=== PATIENT | female | born 1975 | race Asian ===

== ENCOUNTER 2018-05-06 02:47 | Emergency (ER) | payer OTHER ==
[~2018-05-06] VITALS: Ht 162.6 cm; Wt 56.4 kg
[2018-05-06 02:50] VITALS: BP 129/66
[2018-05-06] MEDS ORDERED: PHENAZOPYRIDINE 200 MG TABLET ONE (03:36)
[2018-05-06] MEDS ORDERED: PHENAZOPYRIDINE 200 MG TABLET PO ONE (04:00)
[2018-05-06 04:01] LABS: CULTURE INDICATED? YES; MICROSCOPIC INDICATED
== END 2018-05-06 04:35 | disposition home or self-care (01) ==
LOC: ED 04:30
DX: N30.01 Acute cystitis with hematuria (principal); E11.9 Type 2 diabetes mellitus without complications
CPT/HCPCS: 81001; 81025; 87077; 87086; 87186; 99284

== ENCOUNTER 2020-05-03 12:43 | Emergency (ER) | payer OTHER ==
[~2020-05-03] VITALS: Ht 162.6 cm; Wt 52.8 kg
[2020-05-03] MEDS ORDERED: DIPHENHYDRAMINE 50 MG/ML, 1ML ONE (13:20)
[2020-05-03] MEDS ORDERED: METOCLOPRAMIDE 5 MG/ML, 2ML ONE (13:20)
[2020-05-03] MEDS ORDERED: KETOROLAC 30 MG/1 ML ONE (13:20)
[2020-05-03] MEDS ORDERED: METOCLOPRAMIDE 5 MG/ML, 2ML IVPush ONE (13:30)
[2020-05-03] MEDS ORDERED: SODIUM CHLORIDE 0.9% 1,000ML IVBOLUS ONE (13:30)
[2020-05-03] MEDS ORDERED: DIPHENHYDRAMINE 50 MG/ML, 1ML IVPush ONE (13:30)
[2020-05-03] MEDS ORDERED: KETOROLAC 30 MG/1 ML IVPush ONE (13:30)
--- NOTE | 2020-05-03 13:34 | NUR ---
PT CAME IN CO OF "WORST HEADACE JERRY EVER HAD". STATES SHE HIT HER HEAD ON A SHELF A FEW DAYS AGO AND HEADACHE HASNT GONE AWAY. PT IS [id number]. ACCOMPANIED BY FAMILY MEMBER. DENIES TAKING BLOOD THINNERS. IS RESTING [facility]. MEDICATED PER MAR
[2020-05-03 13:45] LABS: BASOPHILS # (AUTO) 0.04 x10^3/uL (0-0.1); BASOPHILS % (AUTO) 1 % (0-1); EOSINOPHILS # (AUTO) 0.07 x10^3/uL (0-0.4); EOSINOPHILS % (AUTO) 1 % (1-7); LYMPHOCYTES % (AUTO) 37 % (22-44); MD NO; MEAN CORPUSCULAR HEMOGLOBIN 31.1 pg (27.0-34.8); MEAN CORPUSCULAR HGB CONC 34.1 g/dL (32.4-35.8); MEAN CORPUSCULAR VOLUME 91.3 fL (80-100); MONOCYTES # (AUTO) 0.31 x10^3/uL (0.2-0.8); MONOCYTES % (AUTO) 6 % (2-9); NEUTROPHILS # (AUTO) 2.83 x10^3/uL (1.8-6.8); NEUTROPHILS % (AUTO) 55 % (42-75); PLATELET COUNT 287 x10^3/uL (130-400); RED CELL DISTRIBUTION WIDTH 12.4 % (9.6-15.2)
[2020-05-03 13:55] LABS: ANION GAP 8 mmol/L (5-15); CALCIUM 8.9 mg/dL (8.5-10.1); CHLORIDE 105 mmol/L (98-107)
[2020-05-03 13:56] LABS: ALANINE AMINOTRANSFERASE 22 U/L (12-78); ALBUMIN 3.9 g/dL (3.4-5.0)
[2020-05-03 13:58] LABS: ALKALINE PHOSPHATASE 72 U/L (45-117); BILIRUBIN,TOTAL 0.8 mg/dL (0.2-1.0); TOTAL PROTEIN 8.3 g/dL (6.4-8.2)
[2020-05-03 14:10] VITALS: BP 116/68
--- NOTE | 2020-05-03 14:11 | NUR ---
PT AMBULATED TO BATHTOOM TO PROVIDE URINE SAMPLE
[2020-05-03 15:00] LABS: HCG UR SG 1.011 (1.003-1.030); MICROSCOPIC NOT IND
== END 2020-05-03 15:10 | disposition home or self-care (01) ==
LOC: ED 13:40
DX: S09.90XA Unspecified injury of head, initial encounter (principal); G44.209 Tension-type headache, unspecified, not intractable; E11.9 Type 2 diabetes mellitus without complications; W01.0XXA Fall on same level from slipping, tripping and stumbling without subsequent striking against object, initial encounter; Y93.89 Activity, other specified; Y92.098 Other place in other non-institutional residence as the place of occurrence of the external cause; Y99.8 Other external cause status
CPT/HCPCS: 36415; 70450; 80053; 81003; 81025; 85025; 96374; 96375; 99284; J1200; J1885; J2765; J7030